=== PATIENT | male | born 1940 | race Two or more races ===

== ENCOUNTER 2025-08-04 22:02 | Inpatient (IN) | payer MEDICARE ==
[~2025-08-04] VITALS: Ht 170.2 cm; Wt 44.5 kg
[2025-08-04] MEDS: IV NS 0.9% 1,000 ML BAG IV ONE (23:12)
[2025-08-04 23:32] LABS: PLATELET COUNT (AUTO) 179 K/uL (150-450); RED BLOOD CELL COUNT(AUTO) 5.14 MIL/uL (4.5-6.0); RED CELL DISTRIBUTION WIDTH 16.0 % (11.5-15.0); WHITE BLOOD COUNT (AUTO) 9.6 K/uL (4.3-11.0)
[2025-08-04 23:40] LABS: CALCIUM, SERUM 9.1 mg/dL (8.5-10.1); CREATININE 1.4 mg/dL (0.6-1.3); SODIUM SERUM 138.0 mmol/L (136-145); UREA NITROGEN, BLOOD 43.0 mg/dL (7-18)
[2025-08-04 23:45] LABS: INR 1.67 (0.91-1.10)
[2025-08-04 23:47] LABS: ASPARTATE AMINOTRANSFERASE 16.0 U/L (15-37); TOTAL PROTEIN, SERUM 6.0 g/dL (6.4-8.2)
[2025-08-05] VITALS (8 sets, daily range): BP systolic 106–128; BP diastolic 54–77; TEMP 97.3–98.4; O2SAT 97–100
[2025-08-05] MEDS ORDERED: MAGNESIUM HYDROXIDE 30 ML UDC PO PRN (00:30)
[2025-08-05] MEDS ORDERED: MAG HYDROX/AL HYDROX/SIMETH 30 ML UDC PO PRN (00:30)
[2025-08-05] MEDS ORDERED: ONDANSETRON HCL/PF 4 MG/2 ML VIAL IVP PRN (00:30)
[2025-08-05] MEDS ORDERED: ACETAMINOPHEN 325 MG TABLET PO PRN (00:30)
[2025-08-05] MEDS ORDERED: Z GUARD REMEDY 4 OZ OINT TP PRN (00:30)
[2025-08-05] MEDS: IV NS 0.9% 1,000 ML IV PRN (01:17)
[2025-08-05] MEDS ORDERED: ALBUTEROL FS 2.5 MG/0.5 ML VIAL.NEB NEB PRN (04:30)
[2025-08-05 08:08] LABS: PHOSPHORUS 2.5 mg/dL (2.5-4.9)
[2025-08-05] MEDS: MONTELUKAST SODIUM (10MG) 10 MG TABLET PO SCH (08:34)
[2025-08-05] MEDS: TAMSULOSIN 0.4 MG CAP.SR.24H PO SCH (08:34)
[2025-08-05] MEDS: FOLIC ACID 1 MG TABLET PO SCH (08:34)
[2025-08-05] MEDS: PANTOPRAZOLE 40 MG TABLET.DR PO SCH (08:35)
[2025-08-05] MEDS: HEPARIN SODIUM, PORCINE 5000 UNITS/1 ML VIAL SQ SCH (08:36)
[2025-08-05] MEDS ORDERED: METO25TA4 PO (08:51)
[2025-08-05] MEDS ORDERED: PRED20TA PO (08:51)
[2025-08-05] MEDS ORDERED: MONT10TA22 PO (08:51)
[2025-08-05] MEDS ORDERED: TAMS-12 PO (08:51)
[2025-08-05] MEDS ORDERED: FLUT1BLS6 INH (08:51)
[2025-08-05] MEDS ORDERED: FOLI0.4T6 PO (08:51)
[2025-08-05] MEDS ORDERED: MIRT7.5T10 PO (08:51)
[2025-08-05] MEDS ORDERED: IPRA3AMP22 IH (08:51)
[2025-08-05] MEDS ORDERED: FLUTICASONE/VILANTEROL 1 EACH BLST.W.DEV IH SCH (09:00)
[2025-08-05] MEDS: THERAHONEY GEL 1.5 OZ TUBE TP SCH (11:43)
[2025-08-05 17:19] LABS: APPEARANCE,URINE CLOUDY (CLEAR); BLOOD, URINE 3+ Ery/uL (NEGATIVE); LEUKOCYTE ESTERASE ,URINE 1+ (NEGATIVE); NITRITE, URINE NEGATIVE (NEGATIVE); UGLUCOSE NEGATIVE (NEGATIVE)
[2025-08-05 17:25] LABS: CREATININE, URINE 62.1 MG/DL (30.0-125.0); URINE SODIUM, RANDOM 110.0 mmol/l (40-220); URINE TOTAL PROTEIN 44.8 mg/dL (0-11.9)
[2025-08-05 17:46] LABS: CALCIUM OXALATE CRYSTALS,UR Few /HPF (None Seen)
[2025-08-05 17:55] LABS: ADD URINE CULTURE YES; URINE AMORPHOUS URATE Moderate /HPF (None Seen)
[2025-08-05 18:00] LABS: EOSINOPHIL,URINE None Seen
[2025-08-05] MEDS: MIRTAZAPINE 15 MG TABLET PO SCH (21:36)
[2025-08-06] VITALS (11 sets, daily range): BP systolic 106–131; BP diastolic 56–66; TEMP 97.3–98; O2SAT 97–100
[2025-08-06] MEDS: ALBUTEROL FS 2.5 MG/3 ML VIAL.NEB NEB SCH (00:50)
[2025-08-06] MEDS: IPRATROPIUM NEB FS 0.5 MG/2.5 ML AMPUL.NEB NEB SCH (00:50)
[2025-08-06 06:22] LABS: PLATELET COUNT (AUTO) 124 K/uL (150-450); RED BLOOD CELL COUNT(AUTO) 4.35 MIL/uL (4.5-6.0); RED CELL DISTRIBUTION WIDTH 15.7 % (11.5-15.0); WHITE BLOOD COUNT (AUTO) 5.1 K/uL (4.3-11.0)
[2025-08-06 06:40] LABS: ASPARTATE AMINOTRANSFERASE 14.0 U/L (15-37); CALCIUM, SERUM 8.6 mg/dL (8.5-10.1); CREATININE 0.8 mg/dL (0.6-1.3); PHOSPHORUS 2.3 mg/dL (2.5-4.9); SODIUM SERUM 138.0 mmol/L (136-145); TOTAL PROTEIN, SERUM 5.2 g/dL (6.4-8.2); UREA NITROGEN, BLOOD 22.0 mg/dL (7-18)
[2025-08-06 06:52] LABS: CREATINE KINASE, TOTAL 20.0 U/L (39-308)
[2025-08-06] MEDS: METOPROLOL SUCCINATE 25 MG TAB.SR.24H PO SCH (08:34)
[2025-08-06] MEDS: MOMETASONE/FORMOTEROL 8.8 GM HFA.AER.AD IH SCH (08:35)
[2025-08-06] MEDS ORDERED: TAMSULOSIN 0.4 MG CAP.SR.24H PO SCH (09:00)
[2025-08-06] MEDS ORDERED: MONTELUKAST SODIUM (10MG) 10 MG TABLET PO SCH (09:00)
[2025-08-06] MEDS: ENSURE ENLIVE 237 ML LIQUID (VANILLA) PO SCH (17:00)
[2025-08-06] MEDS: K PHOS NEUTRAL 250 MG TABLET PO ONE (18:18)
[2025-08-07] VITALS (9 sets, daily range): BP systolic 104–127; BP diastolic 51–71; TEMP 97–97.7; O2SAT 99–100
[2025-08-07 21:14] LABS: PLATELET COUNT (AUTO) 134 K/uL (150-450); RED BLOOD CELL COUNT(AUTO) 4.10 MIL/uL (4.5-6.0); RED CELL DISTRIBUTION WIDTH 15.6 % (11.5-15.0); WHITE BLOOD COUNT (AUTO) 4.9 K/uL (4.3-11.0)
[2025-08-07 21:24] LABS: CALCIUM, SERUM 8.5 mg/dL (8.5-10.1); CREATININE 1.1 mg/dL (0.6-1.3); SODIUM SERUM 139.0 mmol/L (136-145); UREA NITROGEN, BLOOD 20.0 mg/dL (7-18)
[2025-08-08] VITALS (11 sets, daily range): BP systolic 108–124; BP diastolic 54–66; TEMP 97.2–97.9; O2SAT 96–100
[2025-08-08 06:10] LABS: PLATELET COUNT (AUTO) 139 K/uL (150-450); RED BLOOD CELL COUNT(AUTO) 4.23 MIL/uL (4.5-6.0); RED CELL DISTRIBUTION WIDTH 15.7 % (11.5-15.0); WHITE BLOOD COUNT (AUTO) 4.8 K/uL (4.3-11.0)
[2025-08-08 06:25] LABS: CALCIUM, SERUM 8.9 mg/dL (8.5-10.1); CREATININE 1.0 mg/dL (0.6-1.3); SODIUM SERUM 140.0 mmol/L (136-145); UREA NITROGEN, BLOOD 18.0 mg/dL (7-18)
[2025-08-08 07:07] LABS: PTH, INTACT 31 pg/mL (15-65)
[2025-08-08] MEDS: PANTOPRAZOLE 40 MG/PACK PACK PO SCH (07:57)
[2025-08-08] MEDS ORDERED: POTASSIUM CHLORIDE 20 MEQ TAB.PRT.SR PO ONE (10:00)
[2025-08-08] MEDS: POTASSIUM CHLORIDE 20 MEQ POWDER PACKET PO ONE (10:21)
[2025-08-19 06:07] LABS: *SPE A/G RATIO 1.0 (0.7-1.7); *SPE ALBUMIN 2.3 g/dL (2.9-4.4); *SPE ALPHA-1-GLOBULIN 0.2 g/dL (0.0-0.4); *SPE ALPHA-2-GLOBULIN 0.6 g/dL (0.4-1.0); *SPE BETA GLOBULIN 0.6 g/dL (0.7-1.3); *SPE GLOBULIN, TOTAL 2.3 g/dL (2.2-3.9); *SPE M-SPIKE Not Observed g/dL (Not Observed); *SPE PROTEIN TOTAL 4.6 g/dL (6.0-8.5); *SPEGAMMA GLOBULIN 0.8 g/dL (0.4-1.8)
== END 2025-08-08 18:20 | DRG 391 ==
LOC: EDBD 22:06 → ER 22:06 → MED 08-05 00:40 → TELE 08-05 01:07 → MED 08-08 12:56
PROVIDERS: ADMIT Internal Medicine; ATTEND Internal Medicine
DX: R13.10 Dysphagia, unspecified (principal); E43 Unspecified severe protein-calorie malnutrition; L89.153 Pressure ulcer of sacral region, stage 3; N17.0 Acute kidney failure with tubular necrosis; R64 Cachexia; N40.0 Benign prostatic hyperplasia without lower urinary tract symptoms; J44.9 Chronic obstructive pulmonary disease, unspecified; Z85.51 Personal history of malignant neoplasm of bladder; Z79.52 Long term (current) use of systemic steroids; Z79.899 Other long term (current) drug therapy; E88.09 Other disorders of plasma-protein metabolism, not elsewhere classified; M89.8X9 Other specified disorders of bone, unspecified site; E86.9 Volume depletion, unspecified; I12.9 Hypertensive chronic kidney disease with stage 1 through stage 4 chronic kidney disease, or unspecified chronic kidney disease; N18.9 Chronic kidney disease, unspecified
CPT/HCPCS: 36415; 71045-TC; 80048-TC; 80053-TC; 80076-TC; 81001; 82550-TC; 82570-TC; 83690-TC; 83735-TC; 83970; 84100-TC; 84155; 84165; 84300-TC; 85025-TC; 85730-TC; 87081-TC; 87086-TC; 92526; 92611; 94760-TC; 94799-TC; 97530-TC; 97535-TC; A4223; G0378; J1644; J7030

== ENCOUNTER 2025-08-17 17:05 | Inpatient (IN) | payer MEDICARE, OTHER ==
[~2025-08-17] VITALS: Ht 170.2 cm; Wt 45.4 kg
[~2025-08-17 17:05] MED LIST: FLUT1BLS6 INH; FOLI0.4T6 PO; IPRA3AMP22 IH; METO25TA4 PO; MIRT7.5T10 PO; MONT10TA22 PO; PRED20TA PO; TAMS-12 PO
[2025-08-17] MEDS ORDERED: BENZ1LOZ58 PO (17:40)
[2025-08-17] MEDS ORDERED: NA P133E RC (17:40)
[2025-08-17] MEDS ORDERED: MAGN400O6 PO (17:40)
[2025-08-17] MEDS ORDERED: MULT-213 PO (17:40)
[2025-08-17] MEDS ORDERED: ASCO-352 PO (17:40)
[2025-08-17] MEDS ORDERED: ZINC220C6 PO (17:40)
[2025-08-17 17:46] LABS: PLATELET COUNT (AUTO) 198 K/uL (150-450); RED BLOOD CELL COUNT(AUTO) 4.25 MIL/uL (4.5-6.0); RED CELL DISTRIBUTION WIDTH 15.2 % (11.5-15.0); WHITE BLOOD COUNT (AUTO) 6.6 K/uL (4.3-11.0)
[2025-08-17 17:49] LABS: APPEARANCE,URINE CLOUDY (CLEAR); BLOOD, URINE 2+ Ery/uL (NEGATIVE); LEUKOCYTE ESTERASE ,URINE 2+ (NEGATIVE); NITRITE, URINE NEGATIVE (NEGATIVE); UGLUCOSE NEGATIVE (NEGATIVE)
[2025-08-17 17:56] LABS: CALCIUM, SERUM 8.5 mg/dL (8.5-10.1); CREATININE 1.1 mg/dL (0.6-1.3); SODIUM SERUM 134 mmol/L (136-145); UREA NITROGEN, BLOOD 24 mg/dL (7-18)
[2025-08-17 18:00] LABS: URINE AMORPHOUS PHOSPHATES Many /HPF (None Seen)
[2025-08-17 18:02] LABS: ADD URINE CULTURE YES; ASPARTATE AMINOTRANSFERASE 22 U/L (15-37); SQUAMOUS EPITHELIAL CELL,UR None Seen /HPF (None Seen); TOTAL PROTEIN, SERUM 5.8 g/dL (6.4-8.2)
[2025-08-17] MEDS ORDERED: CEFTRIAXONE 1GM BAG (ER ONLY) 50 ML IV ONE (18:34)
[2025-08-17 18:41] LABS: LACTIC ACID 2.7 mmol/L (0.4-2.0)
[2025-08-17] MEDS: IV NS 0.9% 1,000 ML BAG IV ONE (18:41)
[2025-08-17] MEDS: CEFTRIAXONE 1GM BAG (ER ONLY) 50 ML IV ONE (18:42)
[2025-08-17] MEDS ORDERED: Z GUARD REMEDY 4 OZ OINT TP PRN (19:00)
[2025-08-17] MEDS ORDERED: MAG HYDROX/AL HYDROX/SIMETH 30 ML UDC PO PRN (19:00)
[2025-08-17] MEDS ORDERED: ONDANSETRON HCL/PF 4 MG/2 ML VIAL IVP PRN (19:00)
[2025-08-17] MEDS ORDERED: MAGNESIUM HYDROXIDE 30 ML UDC PO PRN (19:00)
[2025-08-17] MEDS: MIRTAZAPINE 15 MG TABLET PO SCH (22:01)
[2025-08-17] MEDS: IV NS 0.9% 1,000 ML IV PRN (22:04)
[2025-08-18 07:08] LABS: PLATELET COUNT (AUTO) 170 K/uL (150-450); RED BLOOD CELL COUNT(AUTO) 3.87 MIL/uL (4.5-6.0); RED CELL DISTRIBUTION WIDTH 15.4 % (11.5-15.0); WHITE BLOOD COUNT (AUTO) 5.6 K/uL (4.3-11.0)
[2025-08-18 07:11] LABS: CALCIUM, SERUM 8.3 mg/dL (8.5-10.1); CREATININE 0.9 mg/dL (0.6-1.3); PHOSPHORUS 2.5 mg/dL (2.5-4.9); SODIUM SERUM 139.0 mmol/L (136-145); UREA NITROGEN, BLOOD 17.0 mg/dL (7-18)
[2025-08-18 07:18] LABS: LACTIC ACID 1.6 mmol/L (0.4-2.0)
[2025-08-18 07:30] VITALS: BP 131/65; TEMP 97.3; O2SAT 100
[2025-08-18] MEDS: MULTIVIT W/MINERALS 1 TAB TABLET PO SCH (08:59)
[2025-08-18] MEDS: MONTELUKAST SODIUM (10MG) 10 MG TABLET PO SCH (08:59)
[2025-08-18] MEDS: TAMSULOSIN 0.4 MG CAP.SR.24H PO SCH (08:59)
[2025-08-18] MEDS: ASCORBIC ACID 500 MG TABLET PO SCH (09:03)
[2025-08-18] MEDS: METOPROLOL SUCCINATE 25 MG TAB.SR.24H PO SCH (09:03)
[2025-08-18] MEDS: FOLIC ACID 1 MG TABLET PO SCH (09:04)
[2025-08-18 16:00] VITALS: BP 102/52; TEMP 97.3; O2SAT 97
[2025-08-18] MEDS: CEFTRIAXONE 1 G in IV D5W 50 ML IV SCH (19:45)
[2025-08-18 20:00] VITALS: BP 111/57; TEMP 97.7; O2SAT 96
[2025-08-19 06:36] LABS: PLATELET COUNT (AUTO) 163 K/uL (150-450); RED BLOOD CELL COUNT(AUTO) 4.08 MIL/uL (4.5-6.0); RED CELL DISTRIBUTION WIDTH 15.2 % (11.5-15.0); WHITE BLOOD COUNT (AUTO) 4.7 K/uL (4.3-11.0)
[2025-08-19 06:57] LABS: CALCIUM, SERUM 7.9 mg/dL (8.5-10.1); CREATININE 0.7 mg/dL (0.6-1.3); SODIUM SERUM 138.0 mmol/L (136-145); UREA NITROGEN, BLOOD 10.0 mg/dL (7-18)
[2025-08-19 08:00] VITALS: BP 109/67; TEMP 97.7; O2SAT 97
[2025-08-19 16:00] VITALS: BP 109/58; TEMP 97.7; O2SAT 98
[2025-08-19 20:00] VITALS: BP 103/62; TEMP 97.7; O2SAT 98
[2025-08-20 08:00] VITALS: BP 92/61; TEMP 98.1; O2SAT 94
[2025-08-20] MEDS: ACETAMINOPHEN 325 MG TABLET PO PRN (13:25)
[2025-08-20 16:00] VITALS: BP 90/51; TEMP 97.7; O2SAT 99
[2025-08-20 20:00] VITALS: BP 108/61; TEMP 97.7; O2SAT 100
[2025-08-21 07:00] VITALS: BP 98/59; TEMP 97.5; O2SAT 98
[2025-08-21 16:00] VITALS: BP 110/62; TEMP 97.1; O2SAT 100
[2025-08-21 20:00] VITALS: BP 105/58; TEMP 97.5; O2SAT 100
[2025-08-22 07:30] VITALS: BP 104/54; TEMP 97.5; O2SAT 97
[2025-08-22 07:43] VITALS: BP 104/54; TEMP 97.5; O2SAT 97
[2025-08-22] MEDS: IV NS 0.9% 500 ML BAG IV ONE (12:32)
[2025-08-22 13:46] LABS: CALCIUM, SERUM 7.6 mg/dL (8.5-10.1); CREATININE 0.8 mg/dL (0.6-1.3); SODIUM SERUM 133.0 mmol/L (136-145); UREA NITROGEN, BLOOD 11.0 mg/dL (7-18)
[2025-08-22 15:53] VITALS: BP 110/60; TEMP 97.5; O2SAT 97
[2025-08-22 15:59] VITALS: BP 109/66; TEMP 97.7; O2SAT 98
[2025-08-22 16:00] VITALS: BP 109/66; TEMP 97.9; O2SAT 98
[2025-08-22 17:17] LABS: PLATELET COUNT (AUTO) 175 K/uL (150-450); RED BLOOD CELL COUNT(AUTO) 3.68 MIL/uL (4.5-6.0); RED CELL DISTRIBUTION WIDTH 15.6 % (11.5-15.0); WHITE BLOOD COUNT (AUTO) 5.1 K/uL (4.3-11.0)
[2025-08-22] MEDS: MAGNESIUM HYDROXIDE 30 ML UDC PO PRN (17:58)
[2025-08-22 20:00] VITALS: BP 101/50; TEMP 97.9; O2SAT 98
[2025-08-23 02:41] LABS: EOSINOPHILS % (MANUAL) 1 % (0-4); LYMPHOCYTES % (MANUAL) 19 % (16-48); MONOCYTES % (MANUAL) 7 % (0-11.0); NEUTROPHILS % (MANUAL) 73 (42-76); PLATELET ESTIMATE ADEQUATE
[2025-08-23 07:30] VITALS: BP 103/54; TEMP 97.6; O2SAT 99
[2025-08-23 07:42] VITALS: BP 103/54; TEMP 97.6; O2SAT 99
[2025-08-23 16:00] VITALS: BP 108/63; TEMP 97.8; O2SAT 99
[2025-08-23 16:22] VITALS: BP 108/63; TEMP 97.8; O2SAT 99
== END 2025-08-23 19:00 | DRG 698 ==
LOC: ER 17:12 → MED 20:54
PROVIDERS: ADMIT Nurse Practitioner Acute Care; ATTEND Nurse Practitioner Acute Care
DX: T83.511A Infection and inflammatory reaction due to indwelling urethral catheter, initial encounter (principal); E43 Unspecified severe protein-calorie malnutrition; G93.41 Metabolic encephalopathy; E87.20 Acidosis, unspecified; R64 Cachexia; Y84.6 Urinary catheterization as the cause of abnormal reaction of the patient, or of later complication, without mention of misadventure at the time of the procedure; Y92.89 Other specified places as the place of occurrence of the external cause; E86.0 Dehydration; Z20.822 Contact with and (suspected) exposure to COVID-19; I10 Essential (primary) hypertension; J44.9 Chronic obstructive pulmonary disease, unspecified; N40.0 Benign prostatic hyperplasia without lower urinary tract symptoms; Z85.51 Personal history of malignant neoplasm of bladder; Z79.51 Long term (current) use of inhaled steroids; Z79.899 Other long term (current) drug therapy; E88.09 Other disorders of plasma-protein metabolism, not elsewhere classified; D63.8 Anemia in other chronic diseases classified elsewhere; R79.89 Other specified abnormal findings of blood chemistry; R62.7 Adult failure to thrive; N39.0 Urinary tract infection, site not specified; B96.89 Other specified bacterial agents as the cause of diseases classified elsewhere; Z85.3 Personal history of malignant neoplasm of breast; F29 Unspecified psychosis not due to a substance or known physiological condition
CPT/HCPCS: 36415; 71045-TC; 80048-TC; 80076-TC; 81001; 83605-TC; 83690-TC; 83735-TC; 84100-TC; 84484-TC; 85025-TC; 85027-TC; 87040-TC; 87081-TC; 87086-TC; 92526; 92611; 97110-TC; 97530-TC; 97535-TC; A4223; G0378; J0696; J7030; J7040; J7060